=== PATIENT | male | born 1970 | race Caucasian/White ===

== ENCOUNTER 2016-10-27 09:37 | Emergency (ER) | payer BC ==
[~2016-10-27] VITALS: Ht 185.4 cm; Wt 88.5 kg
[2016-10-27 09:37] VITALS: BP 164/72
== END 2016-10-27 11:30 | disposition home or self-care (01) ==
LOC: ER 09:42
DX: I10 Essential (primary) hypertension (principal); F41.9 Anxiety disorder, unspecified; Z88.0 Allergy status to penicillin; Z88.2 Allergy status to sulfonamides
CPT/HCPCS: A4606; Z7610

== ENCOUNTER 2016-12-15 02:42 | Emergency (ER) | payer BC ==
[~2016-12-15] VITALS: Ht 182.9 cm; Wt 136.1 kg
--- NOTE | 2016-12-15 02:50 | NUR ---
PT AMBULATORY TO ER BED 6, C/O EPIGASTRIC/CHEST PAIN THAT WOKE HIM UP, STATES IT BEEN GOING ON FOR A FEW DAYS. 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 PT VSS/RESP EVEN UNLABORED/SKIN WARM AND DRY/ DENIES V/D, C/O SOME NAUSEA. PT IS AOX4. TECH AT BEDSIDE FOR EKG. AWAITING MD ORDERS.
[2016-12-15] MEDS ORDERED: ASPIRIN 81 MG TAB.CHEW PO ONE (03:00)
[2016-12-15] MEDS ORDERED: FAMOTIDINE/PF INJ 20 MG/2 ML VIAL IV ONE ×2 (03:00→03:15)
--- NOTE | 2016-12-15 03:05 | NUR ---
18G TO R AC USING ASEPTIC TECH, BLOOD SAMPLE DRAWN AND SENT TO LAB. IV FLUSHES EASILY WITH NS.
--- NOTE | 2016-12-15 03:07 | NUR ---
RADIOLOGY AT BEDSIDE FOR CXR
[2016-12-15 03:13] LABS: BASOPHILS % (AUTO) 0.5 % (0.0-2.0); EOSINOPHILS # (AUTO) 0.2 /CMM (0.0-0.7); EOSINOPHILS % (AUTO) 2.4 % (0.0-6.0); HEMATOCRIT 44 % (39-51); HEMOGLOBIN 15.2 g/dL (13.5-17.5); LYMPHOCYTES # (AUTO) 3.2 /CMM (0.8-4.8); MEAN CORPUSCULAR HEMOGLOBIN 31 PG (26.0-33.0); MEAN CORPUSCULAR HGB CONC 35 g/dl (31.0-36.0); MEAN CORPUSCULAR VOLUME 90 fL (80-96); MONOCYTES # (AUTO) 0.6 /CMM (0.1-1.30); MONOCYTES % (AUTO) 7.9 % (2.0-12.0); NEUTROPHILS # (AUTO) 3.2 /CMM (1.8-8.9); NEUTROPHILS % (AUTO) 45.2 % (43.0-81.0); PLATELET COUNT (AUTO) 198 /CMM (150-450); RDW COEFFICIENT OF VARIATION 13.6 (11.5-15.0); RED BLOOD CELL COUNT(AUTO) 4.91 MIL/uL (4.5-6.0); WHITE BLOOD COUNT (AUTO) 7.2 K/uL (4.3-11.0)
[2016-12-15] MEDS ORDERED: ASPIRIN 81 MG TAB.CHEW ONE ×2 (03:15→03:16)
[2016-12-15 03:25] LABS: CALCIUM, SERUM 9.1 mg/dL (8.5-10.1); CARBON DIOXIDE 22 mmol/L (21-32); CHLORIDE 109 mmol/L (98-107); CREATININE 1.1 mg/dL (0.6-1.3); GLUCOSE 184 mg/dL (74-106); POTASSIUM 3.5 mmol/L (3.5-5.1); SODIUM SERUM 146 mmol/L (136-145); UREA NITROGEN, BLOOD 16 mg/dL (7-18)
[2016-12-15 03:27] LABS: INR 0.98 (0.87-1.13); PROTHROMBIN TIME 10.2 SECS (9.5-12.7)
[2016-12-15 03:30] LABS: ALANINE AMINOTRANSFERASE 33 U/L (12-78); ALBUMIN 3.9 g/dL (3.4-5.0); ALKALINE PHOSPHATASE 52 U/L (46-116); ASPARTATE AMINOTRANSFERASE 24 U/L (15-37); BILIRUBIN,TOTAL 0.2 mg/dL (0.2-1.0); LIPASE 235 U/L (73-393); TOTAL PROTEIN, SERUM 7.6 g/dL (6.4-8.2); TROPONIN I < 0.017 ng/mL (0.00-0.056)
[2016-12-15] MEDS ORDERED: IV NS 0.9% 1,000 ML BAG IV ONE (04:00)
[2016-12-15] MEDS ORDERED: IOHEXOL-300 100 ML VIAL IV ONE (04:01)
--- NOTE | 2016-12-15 04:09 | NUR ---
PT TO CT VIA STRETCHER. VSS.
--- NOTE | 2016-12-15 04:09 | NUR ---
AT BEDSIDE SPEAKING WITH PT.
--- NOTE | 2016-12-15 04:35 | NUR ---
PT BACK FROM CT. VSS.
--- NOTE | 2016-12-15 04:45 | NUR ---
ULTRA SOUND AT BEDSIDE.
--- NOTE | 2016-12-15 05:51 | NUR ---
IV removed. Catheter intact and site benign. Pressure and 4x4 applied to site. No bleeding noted. Patient discharged to home in stable condition. Written and verbal after care instructions given. Patient verbalizes understanding of instruction. Pt ambulatory with a steady gait.
[2016-12-15 05:53] VITALS: BP 165/85
== END 2016-12-15 05:54 | disposition home or self-care (01) ==
LOC: ER 02:46
DX: K21.9 Gastro-esophageal reflux disease without esophagitis (principal); F41.9 Anxiety disorder, unspecified; J84.10 Pulmonary fibrosis, unspecified; Z88.0 Allergy status to penicillin; Z88.2 Allergy status to sulfonamides
CPT/HCPCS: 36415; 71010; 71260; 74160; 76705; 80048; 80076; 83690; 84484; 85025; 85730; 93005; 96361; 96374; 99285; A4606; J3490; J7030; Q9967; Z7610